=== PATIENT | female | born 1940 | race Caucasian/White ===

== ENCOUNTER 2017-12-16 17:04 | Observation (INO) ==
[2017-12-16] MEDS ORDERED: Naloxone 0.4 MG/ML INJ IVP PRN (20:55)
--- NOTE | 2017-12-16 21:13 | Internal Med History&Physical ---
Date of Encounter: 12/16/17 Time of Encounter: 21:11 Internal Medicine - H&P: HPI Chief complaint: right facial droop History of present illness: Ms. Rueda is a 77 year old female with a hx of prior CVA many years ago but does not appear to have any residual deficits, who presents as a transfer from [facility] for TIA evaluation. It was reported that she was spending all day at a yesterday and when she returned home she was really tired and felt weak and ache all over probably from being in the the entire day yesterday. This morning when she woke up at approximately 8 AM, her family reported that she had mild right facial droop and that she was not feeling well. She describes it as feeling lightheaded but had trouble remembering what happened. She was subsequently transferred to [facility] where initial evaluation with a CT head was without acute findings and that her facial droop has resolved. She was subsequently transferred to [facility] for further GI evaluation. EKG personally reviewed with rate 66, normal sinus rhythm Sodium 134, potassium 3.8 creatinine 0.81, hemoglobin 10.0, platelets 3 47,000, WBC 5.4 INR 1.03 Reviewed UA results and Hoelzer that was negative CT head not available to review. Pulses note suggested no acute change but with background of chronic ischemic changes that may be consistent with prior CVAs Past Med Surg Social Fam HX - Past Medical History Source: patient (depression, COPD) Medical history: CVA - Past Surgical History Surgical History: no surgical history, non-contributory - Social History Packs per day: quit smoking 4 months ago Smokeless Tobacco Status: No Current living situation: Home - Independent - Family History Father Hx Family Cardiac Disorders: Yes (htn) Mother Hx Family Cardiac Disorders: Yes (htn) Internal Medicine - H&P: Meds Albuterol Sulfate [Ventolin Hfa] 2 puff IH Q6H PRN 12/16/17 [History] Clopidogrel [Plavix] 75 mg PO DAILY 12/16/17 [History] Esomeprazole Magnesium [Nexium] 40 mg PO DAILY 12/16/17 [History] Sertraline [Zoloft] 100 mg PO DAILY 12/16/17 [History] All Systems PM: A 10-system review of systems was performed and is negative for pertinent findings except as documented above in the HPI. Review of systems: ROS 14 point review of systems reviewed as best as possible given presentation. Pertinent positive or negative as per HPI or otherwise reviewed as negative - Constitutional Vitals: Temp Pulse Resp BP Pulse Ox 98.2 F 62 12 146/67 96 12/16/17 19:10 12/16/17 19:10 12/16/17 19:10 12/16/17 19:10 12/16/17 19:10 Exam: General - AAO x 3 Psych - Appropriate affect/speech. No agitation Eyes - RAYSA. Eye lids intact. No scleral icterus Neuro - No gross peripheral or central neuro deficits on exam Heart - Sinus. RRR. S1 and S2 present. No added HS/murmurs appreciated. No elevated JVD appreciated. Lung - Adequate air entry b/l, No crackles/wheezes appreciated GI - Soft, non-tender. No hepatosplenomegaly/ascites. BS+ - No CVA/suprapubic tenderness or palpable bladder distension Skin - Intact. No rash/petechiae/ecchymosis. Warm extremities - Assessment and plan (1) TIA (transient ischemic attack) Current Visit: Yes Status: Acute Assessment and plan: add lipitor, ASA, continue plavix - continue DAPT for 3 months before switching to plavix along check MRI brain, US doppler carotid tele monitoring neurochecks check lipitor Qualifiers: Transient cerebral ischemia type: other Qualified Code(s): G45.8 - Other transient cerebral ischemic attacks and related syndromes (2) CVA (cerebral vascular accident) Current Visit: Yes Status: Acute Assessment and plan: hx of CVA many years ago w/o residual deficits noted Qualifiers: Laterality of affected vessel: unspecified Qualified Code(s): 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
[2017-12-17 05:52] LABS: Chol/HDL Ratio 2.3 (0-4.9)
[2017-12-17] MEDS: Aspirin 81 MG TAB.CHEW PO SCH (08:35)
[2017-12-17] MEDS ORDERED: Azithromycin 500 MG in D5% in Water 250 ML IVPB SCH (15:00)
[2017-12-17] MEDS ORDERED: cefTRIAXone 1,000 MG in 0.9 % Sodium Chloride Mini Bag 100 ML IVPB SCH (15:00)
--- NOTE | 2017-12-17 15:24 | Internal Med Progress Note ---
Date of Encounter: 12/17/17 Time of Encounter: 15:24 - Assessment and plan (1) TIA (transient ischemic attack) Current Visit: Yes Status: Acute Assessment and plan: presented with right-sided facial droop. OSH head CT reportedly nonacute. Brain MRI negative for infarct. Cont ASA, Plavix, statin. Will discuss with neurology Qualifiers: Transient cerebral ischemia type: other Qualified Code(s): G45.8 - Other transient cerebral ischemic attacks and related syndromes (2) CVA (cerebral vascular accident) Current Visit: Yes Status: Acute Assessment and plan: hx of CVA many years ago with right-sided weakness. Brain MRI negative for acute infarct. 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 Start azithromycin, ceftriaxone. CXR, RVP and urinary antigens pending (5) DVT prophylaxis Current Visit: Yes Status: Acute - Time Spent With Patient Total time spent is greater than 50% in coordination of care (as documented) at patient's floor/unit and/or counseling patient: - Subjective Interval history: Seen and examined at bedside. Patient is new to me, information obtained from chart review and patient report. Says she is weak and tired but feels a little better. Right-sided facial droop resolved. She does complain of some shortness of breath and productive cough at times. No chest pain. - Constitutional Vitals: Temp Pulse Resp BP Pulse Ox 97.9 F 69 18 131/69 96 12/17/17 12:18 12/17/17 12:18 12/17/17 12:18 12/17/17 12:18 12/17/17 12:18 General appearance: Present: A&O X 3, no acute distress - Head Head exam: Present: atraumatic, normocephalic - Eye Eye exam: Present: PERRL, conjuntiva pink, sclera anicteric Pupils: Present: PERRL - Neck Neck exam general surgery: Present: supple, trachea midline. Absent: lymphadenopathy - Respiratory Respiratory exam: Present: rhonchi, wheezes. Absent: accessory muscle use, rales - Cardiovascular Cardiovascular exam: Present: RRR, +S1, +S2. Absent: diastolic murmur, gallop, rubs, systolic murmur - GI/Abdominal GI/Abdominal exam: Present: normal bowel sounds, soft, no peritoneal signs. Absent: distended, tenderness - Extremities Exam Extremities exam: Present: warm, radial pulses palpable and symmetrical. Absent : calf tenderness, cyanotic, pedal edema - Neurological Exam Neurological exam: Present: CN II-XII intact, oriented X3. Absent: no focal deficits, strengths equal and symetr throughout (Right-sided weakness), pronater drift, facial droop, speech deficit - Skin Skin exam: Present: dry, intact Internal Medicine: Result - Impressions Impressions Brain MRI 12/16/17 21:09 IMPRESSION: 1. No evidence of acute infarct. 2. Cerebral and cerebellar parenchymal volume loss with mild chronic microvascular white matter ischemic disease noted both supra and infratentorially. D/ / 12/17/2017 11:51:06 Robert Stone MD / susi Interpreting Provider: Robert Stone MD Consult Discharge Plan - Plan Referrals: NONE,PCP [Primary Care Provider] -
[2017-12-17] MEDS: predniSONE 20 MG TABLET PO SCH (17:28)
[2017-12-17] MEDS: *HR* Heparin 5,000 UNIT/ML VIAL SQ SCH (17:35)
[2017-12-18] MEDS: *HR* Heparin 5,000 UNIT/ML VIAL SQ SCH (06:18)
[2017-12-18] MEDS: Aspirin 81 MG TAB.CHEW PO SCH (09:26)
[2017-12-18] MEDS: predniSONE 20 MG TABLET PO SCH (09:26)
--- NOTE | 2017-12-18 13:05 | Discharge Summary ---
Orders not resulted at time of discharge: Pending orders 12/17/17 15:22 Legionella Antigen [RM] Stat Respiratory Infection Panel [MOLMIC] Stat S. Pneumoniae Antigen [RM] Stat Date of Encounter: 12/18/17 Time of Encounter: 13:08 - Discharge Diagnosis (1) TIA (transient ischemic attack) Priority: Primary Status: Acute Assessment and Plan: Reportedly presented with right-sided facial droop. Patient does not know details and family member who witnessed facial droop not available for collateral. Symptoms resolved prior to arrival to transfer to [facility]. OSH head CT reportedly nonacute. Bilateral carotid Dopplers with nonstenotic plaque. Brain MRI negative for infarct. Already on ASA, Plavix. Statin added. Continue ASA, Plavix and statin as there is no radiographic evidence of acute infarct in symptoms resolved; therefore no clear indication to increase dose of ASA or to add anticoagulation. Advised on risk factor modification. Qualifiers: Transient cerebral ischemia type: other Qualified Code(s): G45.8 - Other transient cerebral ischemic attacks and related syndromes (2) COPD exacerbation Priority: Primary Status: Acute Assessment and Plan: Symptomatic with cough, shortness of breath and wheezing. Sx's improved with IV azithromycin, ceftriaxone. RVP and urinary antigens ordered but not completed. CXR with evidence of atelectasis or pneumonia. Clinically does not appear to be pneumonia symptoms more consistent with COPD exacerbation. Discharge home on Levaquin, steroid burst. (3) CVA (cerebral vascular accident) Priority: Primary Status: Acute Assessment and Plan: hx of CVA many years ago with right-sided weakness. Brain MRI negative for acute infarct. 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 She says she feels much better today and would like to discharge home. Still has a nonproductive cough at times overall improved. No further right-sided facial droop or weakness. No chest pain or shortness of breath. Advised to return to ER if neurological symptoms recurred.) - Time Spent with Patient Total time spent providing and/or coordinating discharge services: - Discharge Medications Prescriptions: Atorvastatin [Lipitor] 40 mg PO HS #30 tablet levoFLOXacin [Levaquin] 750 mg PO DAILY #5 tablet predniSONE [PredniSONE] 40 mg PO DAILY #6 tablet Home Medications: Albuterol Sulfate [Ventolin Hfa] 2 puff IH Q6H PRN 12/16/17 [History] Clopidogrel [Plavix] 75 mg PO DAILY 12/16/17 [History] Esomeprazole Magnesium [Nexium] 40 mg PO DAILY 12/16/17 [History] Sertraline [Zoloft] 100 mg PO DAILY 12/16/17 [History] Atorvastatin [Lipitor] 40 mg PO HS #30 tablet 12/18/17 [Rx] levoFLOXacin [Levaquin] 750 mg PO DAILY #5 tablet 12/18/17 [Rx] predniSONE [PredniSONE] 40 mg PO DAILY #6 tablet 12/18/17 [Rx] Allergies/Adverse Reactions: 3 Allergy/AdvReac Type Severity Reaction Status Date / Time No Known Allergies Allergy Verified 12/17/17 03:50 Date of admission: 12/16/17 18:18 Primary care physician: PCP NONE Discharging clinician: Ivory Callaway Anticipated date of discharge: 12/18/17 - Constitutional Vitals: Temp Pulse Resp BP Pulse Ox 98.8 F 56 14 134/70 95 12/18/17 11:54 12/18/17 11:54 12/18/17 11:54 12/18/17 11:54 12/18/17 11:54 General appearance: Present: cachectic, A&O X 3, no acute distress - Head Head exam: Present: atraumatic, normocephalic - Eye Eye exam: Present: PERRL, conjuntiva pink, sclera anicteric Pupils: Present: PERRL - Neck Neck exam general surgery: Present: supple, trachea midline. Absent: lymphadenopathy - Respiratory Respiratory exam: Present: CTAB. Absent: accessory muscle use, rales, rhonchi, wheezes - Cardiovascular Cardiovascular exam: Present: RRR, +S1, +S2. Absent: diastolic murmur, gallop, rubs, systolic murmur - GI/Abdominal GI/Abdominal exam: Present: normal bowel sounds, soft, no peritoneal signs. Absent: distended, tenderness - Extremities Exam Extremities exam: Present: warm, radial pulses palpable and symmetrical. Absent : calf tenderness, cyanotic, pedal edema - Neurological Exam Neurological exam: Present: CN II-XII intact, oriented X3, no focal deficits. Absent: pronater drift, facial droop, speech deficit - Skin Skin exam: Present: dry, intact - Patient Status Disposition: Home, Self-Care Condition: Good Functional capacity at discharge: uses cane/walker Overall status at discharge: patient is back to baseline - Discharge Instructions Instructions: Community-acquired Pneumonia (DC), Levofloxacin (By mouth), Prednisone (By mouth), Transient Ischemic Attack (DC) Follow Up With: NONE,PCP [Primary Care Provider] - (He is call your primary care physician within 24 hours to schedule a follow-up appointment. If you do not have a primary care physician please call [phone] to find a physician accepting new patients.) - Diet and Activity Activity: increase activity as tolerated Diet: advance to your usual diet
== END 2017-12-18 14:08 | disposition home or self-care (01) ==
LOC: 3BNU
PROVIDERS: ADMIT Internal Medicine Hematology & Oncology; ATTEND Family Medicine